=== PATIENT | female | born 1995 | race Hispanic/Latino ===

== ENCOUNTER 2024-08-20 23:56 | Emergency (ER) | payer BC, MEDICAID ==
[~2024-08-20] VITALS: Ht 157.5 cm; Wt 122.0 kg
[2024-08-21 00:33] LABS: RAPID GROUP A STREP negative (NEGATIVE)
[2024-08-21 00:38] LABS: SARS-CoV-2, RNA, NAAT NEGATIVE SARS CoV-2 (NEGATIVE)
[2024-08-21 00:44] LABS: INFLUENZA TYPE A Negative For Type A (NEGATIVE); INFLUENZA TYPE B Negative For Type B (NEGATIVE)
[2024-08-21] MEDS: Solu-medROL 125MG VIAL IVP ONE (00:54)
[2024-08-21] MEDS: IpraTROPium/alBUTERol SULFATE 3 ML SOLUTION IH ONE (01:03)
[2024-08-21 01:06] VITALS: PULSE 95; RESP 18
[2024-08-21 01:06] LABS: CREATININE 0.9 mg/dL (0.5-1.0); POTASSIUM 4.3 mmol/L (3.5-5.1)
[2024-08-21 01:34] LABS: BASOPHILS # (AUTO) 0.02 K/uL (0.00-0.20); BASOPHILS % (AUTO) 0.2 % (0.0-5.0); EOSINOPHILS # (AUTO) 0.19 K/uL (0.00-0.70); EOSINOPHILS % (AUTO) 2.4 % (0.0-8.0); HEMATOCRIT 27.5 % (36-48); IMMATURE GRANULOCYTE ABSOLUTE 0.08 K/uL (0-1); LYMPHOCYTES # (AUTO) 2.6 K/uL (1.0-4.8); MEAN CORPUSCULAR HEMOGLOBIN 22.6 pg (27.0-33.0); MEAN CORPUSCULAR HGB CONC 30.5 g/dL (32.0-36.0); MEAN CORPUSCULAR VOLUME 74.1 fL (79-99); MONOCYTES # (AUTO) 0.8 K/uL (0.1-1.0); MONOCYTES % (AUTO) 9.7 % (3.0-13.0); NEUTROPHILS # (AUTO) 4.4 K/uL (1.8-7.7); NEUTROPHILS % (AUTO) 54.7 % (40.0-77.0); PLATELET COUNT (AUTO) 267 K/uL (130-400); RED BLOOD CELL COUNT(AUTO) 3.71 MIL/uL (4.00-5.50); RED CELL DISTRIBUTION WIDTH 16.4 % (11.0-15.5)
[2024-08-21] MEDS ORDERED: GUAI5SYR PO (02:26)
--- NOTE | 2024-08-21 02:26 | ERN ---
ED Note History of Present Illness Stated Complaint: C/O COUGH WITH PHLEGM,SORE THROAT,SOB,X 4 DAYS Chief Complaint: Cough Time Seen by MD: 00:04 Time Seen by Midlevel: 00:04 Dictation: The patient is a 29-year-old female with no significant past medical history who presents to the emergency department with complaints of shortness of breath, sore throat, dry cough, chest pain onset four days ago. Patient reports chest pain when coughing. Patient denies any fevers. 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 Past Medical History Past Medical History: No Pertinent History Surgical History: LMP: Aug 08, 2024 RN Note Reviewed/Agreed w/PFSH: Yes Review of System Dictation Constitutional: Negative for fever,chills, and weight loss Eyes: Negative for injury, pain,redness, and discharge ENT: Negative for injury,pain or swelling Cardiovascular: Negative for palpitations, and edema positive for chest pain Respiratory: Negative for and wheezing, positive for cough, shortness of breath Abdomen/GI: Negative for abdominal pain, nausea, vomiting, diarrhea, and constipation Back: Negative for injury and pain : Negative for injury, bleeding and discharge MS/Extremity: Negative for injury and deformity Skin: Negative for rash, and discoloration Neuro: Negative for headache, weakness, numbness, tingling, and seizure Psych: Negative for suicide ideation, homicidal ideation, and hallucinations Initial Vital Sign VS Vital Signs Date Time Temp Pulse Resp B/P (MAP) Pulse Ox O2 Delivery O2 Flow Rate FiO2 08/20/24 23:58 99.5 63 20 133/73 96 Room Air 08/21/24 00:57 0 21 Physical Exam Dictation Vital Signs reviewed General Appearance: Alert, oriented x 3, no acute distress, well developed, nourished. Head and Face: non-traumatic. Eyes: PERRL, pink conjunctivas, eyelid no trauma, anterior chamber with arcus senilis. Ears: Pinnas intact and no signs of trauma or erythema ear canals clear and no discharge TM no erythema Nose: No discharge, no bleeding. Oropharynx: Mouth normal, tongue pink. pharynx clear,no erythema, tonsils no exudates, no abscesses noted, mucous membrane moist Neck: Supple, non-tender, no thyromegaly, no masses, no JVD, no bruits Breast:Deferred Chest:No tenderness, no crepitus, no paradoxical movement, no retractions Lungs:Clear, well-ventilated, symmetric, no rales, no wheezing, no rhonchi, no stridor, good breath sounds bilaterally Heart: Regular rate, regular rhythm, no murmur, no gallops Vascular: no peripheral edema, Abdomen: Soft, positive bowel sounds, nondistended, no guarding, nontender, no rebound, no masses no hepatomegaly, no splenomegaly, no Orsas's sign, no hernias. Rectal: Deferred Genital: Deferred Neurological: Normal speech, motor function intact, sensory function intact Musculoskeletal: Neck nontender, full range of motion, back nontender, full range of motion, Extremities: nontender, full range of motion Skin: Color pink, dry, no turgor, no rash, no lacerations, no abrasions, no contusions. Lymphatic: Deferred Results (Laboratory/Radiology) Laboratory/Radiology Laboratory Tests Test 08/21/24 00:05 08/21/24 00:45 Influenza Type A Antigen Negative For Type A Influenza Type B Antigen Negative For Type B SARS-CoV-2, RNA, NAAT NEGATIVE SARS CoV-2 Group A Streptococcus Rapid negative (NEGATIVE) White Blood Count 8.0 K/uL (4.8-10.8) Red Blood Count 3.71 MIL/uL (4.00-5.50) L Hemoglobin 8.4 g/dL (12.0-16.0) L Hematocrit 27.5 % (36-48) L Mean Corpuscular Volume 74.1 fL (79-99) L Mean Corpuscular Hemoglobin 22.6 pg (27.0-33.0) L Mean Corpuscular Hemoglobin Concent 30.5 g/dL (32.0-36.0) L Red Cell Distribution Width 16.4 % (11.0-15.5) H Platelet Count 267 K/uL (130-400) Mean Platelet Volume 12.2 fL (7.5-10.5) H Immature Granulocyte % (Auto) 1.0 % (0-1) Neutrophils (%) (Auto) 54.7 % (40.0-77.0) Lymphocytes (%) (Auto) 32.0 % (21.0-51.0) Monocytes (%) (Auto) 9.7 % (3.0-13.0) Eosinophils (%) (Auto) 2.4 % (0.0-8.0) Basophils (%) (Auto) 0.2 % (0.0-5.0) Neutrophils # (Auto) 4.4 K/uL (1.8-7.7) Lymphocytes # (Auto) 2.6 K/uL (1.0-4.8) Monocytes # (Auto) 0.8 K/uL (0.1-1.0) Eosinophils # (Auto) 0.19 K/uL (0.00-0.70) Basophils # (Auto) 0.02 K/uL (0.00-0.20) Absolute Immature Granulocyte (auto 0.08 K/uL (0-1) Nucleated Red Blood Cells 0.0 % (0.0-0.19) Red Blood Cell Morphology See comments Sodium Level 135 mmol/L (136-145) L Potassium Level 4.3 mmol/L (3.5-5.1) Chloride Level 100 mmol/L (101-111) L Carbon Dioxide Level 26 mmol/L (21-32) Blood Urea Nitrogen 9 mg/dL (7-18) Creatinine 0.9 mg/dL (0.5-1.0) Glomerular Filtration Rate Calc 88 mL/min (>90) Random Glucose 127 mg/dL (70-105) H Total Calcium 8.5 mg/dL (8.5-10.1) Troponin I High Sensitivity 7 ng/L (4-50) Serum Test, Qualitative NEGATIVE (NEGATIVE) Labs Reviewed?: Yes EKG: (+) NSR, (+) rhythm (Sinus rhythm) EKG Comment: EKG 08/21/2024 0254 ventricular rate 95, regular rate and rhythm, normal sinus rhythm, no STEMI ED Course ED Course Orders Procedure Category Date Status Time Covid Rna Naat LAB 08/21/24 Complete 00:04 Influenza Type A & B, LAB 08/21/24 Complete Rapid 00:04 Rapid (Group A Strep) LAB 08/21/24 Complete 00:04 Chest 1vw RAD 08/21/24 Taken 00:30 Cbc With Differential LAB 08/21/24 Complete 00:30 Troponin I High LAB 08/21/24 Complete Sensitivity 00:30 Basic Metabolic Panel LAB 08/21/24 Complete 00:30 Testing, LAB 08/21/24 Complete Serum Hcg 00:30 Ipratropium/Albuterol PHA 08/21/24 Complete Neb (Duoneb) 00:30 Methylprednisolone PHA 08/21/24 Complete Succ 125mg (Solu-Medr 00:30 12 Lead Ekg Tracing- EKG 08/21/24 Resulted Technical 01:58 Current Medications Medications (Trade) Dose Ordered Sig/Joel Route PRN Reason Start Time Stop Time Status Last Admin Dose Admin Albuterol (DUOneb) 1 UDVIAL ONCE ONCE IH 08/21/24 00:30 08/21/24 00:32 DC 08/21/24 01:03 Methylprednisolone Sodium Succinate (Solu-medROL 125MG) 125 mg ONCE ONCE IVP 08/21/24 00:30 08/21/24 00:32 DC 08/21/24 00:54 Vital Signs Date Time Temp Pulse Resp B/P (MAP) Pulse Ox O2 Delivery O2 Flow Rate FiO2 08/21/24 03:03 98.2 89 18 110/65 97 Room Air* 0 21 08/21/24 01:06 95 18 08/21/24 00:57 98.4 98 18 100/63 99 Room Air* 0 08/20/24 23:58 99.5 63 20 133/73 96 Room Air HEART Score Response (Comments) Value History: Low suspicion (0) 0 EKG: Normal 0 Age: < 45yrs (0) 0 Risk Factors: No known risk factors (0) 0 Initial Troponin: Normal limit (0) 0 HEART Score Risk: Low Risk for MACE (1-3) Total 0 Medical Decision Making MDM The patient is a 29-year-old female with no significant past medical history who presents to the emergency department with complaints of shortness of breath, sore throat, dry cough, chest pain onset four days ago. Patient reports chest pain when coughing. Patient denies any fevers. CBC showed no leukocytosis, microcytic anemia, patient with no active bleeding chemistry showed mild hyponatremia, hypochloremia, GFR of 87, negative troponin, chest x-ray with no acute cardiopulmonary pathology. Patient reports feeling better. Continues in no distress will be discharged to follow up with PCP. Differential diagnosis: ACS, pneumonia, pneumothorax, upper respiratory infection, bronchitis Need for hospitalization: Patient does not meet criteria for hospitalization. There are no social concerns with this patient. DX & DISP Disposition: Discharge Departure Impression: Primary Impression: Upper respiratory infection Additional Impressions: Cough, Chest pain, non-cardiac, Anemia Condition: Stable Scripts Guaifenesin/Dextromethorphan (Guaifenesin Dm Syrup) 100 Mg-10 Mg/5 Ml Syrup 5 ML PO TID for cough and congestion for 8 Days, #120 ML 0 Refills Prov: ALVERTO HARRIS 08/21/24 Additional Instructions: FOLLOW-UP WITH PRIMARY CARE PROVIDER IN 1 TO 2 DAYS. TAKE MEDICATIONS DIRECTED HERE IN THE EMERGENCY ROOM. OKAY TO CONTINUE HOME MEDICATIONS UNLESS OTHERWISE DISCUSSED DURING YOUR VISIT IN THE EMERGENCY ROOM TODAY. RETURN TO YOUR NEAREST EMERGENCY ROOM IF SYMPTOMS WORSEN OR IF THERE IS NO IMPROVEMENT. CALL 911 IF YOU NEED IMMEDIATE ASSISTANCE. TAKE TYLENOL OR MOTRIN [id number] NEEDED AND IF NO CONTRAINDICATIONS ARE PRESENT. INCREASE ORAL HYDRATION. A WOUND CULTURE OR URINE CULTURE WAS ORDERED HERE IN THE EMERGENCY ROOM DEPARTMENT PLEASE FOLLOW-UP WITH PRIMARY CARE PROVIDER AND ADVISE THEM TO GET REPEAT PORTS FROM OUR FACILITY. IF YOU HAD ANY CHILO WRAP/SPLINTS THAT WERE APPLIED HERE, PLEASE DO NOT REMOVE THEM UNTIL YOU SEE YOUR PRIMARY CARE OR SPECIALTY. Referrals: SELF,REFERRAL (PCP) Time of Disposition: 02:25 I have reviewed the case, and I agree with, Diagnosis and Plan ATTESTATION BY PHYSICIAN I PERFORMED THE SUBSTANTIVE PORTION OF THE VISIT. I HAVE REVIEWED AND PERSONALLY MADE AND APPROVED THE MANAGEMENT PLAN THAT IS DOCUMENTED IN THE NOTE BY MYSELF FOR THE A PP. I ACKNOWLEDGED FOR RESPONSIBILITY FOR THE PATIENT'S MAN AGEMENT PLAN. ALVERTO HARRIS Aug 21, 2024 02:26 KORIN BURROUGHS MD Aug 22, 2024 05:09
[2024-08-21 03:03] VITALS: BP 110/65; PULSE 89; RESP 18; TEMP 98.3; O2SAT 97
--- NOTE | 2024-08-21 05:55 | EKG ---
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
== END 2024-08-21 03:27 | disposition home or self-care (01) ==
LOC: EDH 23:56
DX: J06.9 Acute upper respiratory infection, unspecified (principal); D64.9 Anemia, unspecified; R07.89 Other chest pain; Z20.822 Contact with and (suspected) exposure to COVID-19; Z79.899 Other long term (current) drug therapy; Z98.890 Other specified postprocedural states
CPT/HCPCS: 99284; 87635; 84484; 80048; 84703; 85025; 87880; 87804 ×2; 36415; 96374; 71045; 93005; 94640; J2919